=== PATIENT | female | born 1985 | race African-American/Black ===

== ENCOUNTER 2016-07-12 18:47 | Emergency (ER) | payer OTHER | END 2016-07-12 20:50 | disposition home or self-care (01) | LOC: FER 18:47 | DX: S61.512A Laceration without foreign body of left wrist, initial encounter (principal); Z23 Encounter for immunization; W25.XXXA Contact with sharp glass, initial encounter | CPT/HCPCS: 73110; 90471; 90715 ==

== ENCOUNTER 2020-10-08 19:47 | Emergency (ER) | payer OTHER ==
[~2020-10-08 19:47] MED LIST: ASPIRIN EC325 MG PO; CEFTIN250 MG PO; CELEXA20 MG PO; DEXILANT30 MG PO; DIVIGEL1 GM TOP; HCTZ12.5 MG PO; HIPREX1 GM PO; HYDROXYZINE 10M10 MG PO; LOPRESSOR50 MG PO; LOVAZA1 GM PO; MELATONIN5 MG PO; NEURONTIN100 MG PO; PRESERVISION A1 EACH PO; PROMETHEGA12.5 MG/SU PR; RANEXA500 MG PO; SENOKOT8.6 MG PO; SYNTHROID25 MCG PO; SYSTANE ULTRA 010 ML EYEBOTH; VERAPAMIL ER240 MG PO; VITAMIN D350000 UNIT PO; ZESTRIL5 MG PO; ZYRTEC10 M3 PO
[2020-10-08 20:23] LABS: BASOPHIL 0.4 % (0-2); EOSINOPHIL 1.6 % (0-5); HCT 28.2 % (37.0-47.0); HGB 8.1 g/dl (12.5-16.0); LYMPHOCYTE 30.2 % (15-48); MCH 19.7 pg (25.0-31.0); MCHC 28.7 g/dL (32.0-36.0); MCV 68.6 fL (78.0-100.0); MONOCYTE 6.4 % (0-12); MPV 9.6 fL (6.0-9.5); NEUTROPHIL 61.2 % (41-80); NRBC 0; PLT 396 K/uL (150-400); RBC 4.11 M/uL (4.20-5.40); RDW 23.4 % (11.5-14.0); WBC 9.2 K/uL (4.0-10.5)
[2020-10-08 20:39] LABS: ALBUMIN 3.5 g/dL (3.4-5.0); BILIRUBIN - TOTAL 0.2 mg/dL (0.2-1.0); BUN/CREAT RATIO (CALC) 12.6 RATIO; CREATININE 0.87 mg/dL (0.51-0.95); POTASSIUM 3.6 mmol/L (3.5-5.1); TOTAL PROTEIN 7.5 g/dL (6.4-8.2)
[2020-10-08] MEDS ORDERED: KEFLEX250 MG/5 M PO (23:16)
[2020-10-08] MEDS ORDERED: NORCO 5-325 TA1 EACH PO (23:18)
[2020-10-08] MEDS ORDERED: VIBRAMYCIN100 MG PO (23:18)
[2020-10-08] MEDS ORDERED: MEDROL 4MG DOSEP4 MG PO (23:18)
== END 2020-10-08 23:38 | disposition home or self-care (01) ==
LOC: FER 19:47
PROVIDERS: Emergency Medicine
DX: R07.89 Other chest pain (principal); D64.9 Anemia, unspecified; R11.0 Nausea; R10.9 Unspecified abdominal pain; F17.210 Nicotine dependence, cigarettes, uncomplicated
CPT/HCPCS: 36415; 71275; 80053; 83690; 85025; 85379; 93005; J1885; J2405; Q9967

== ENCOUNTER 2020-12-15 14:59 | Emergency (ER) | payer OTHER ==
[~2020-12-15 14:59] MED LIST changes: +KEFLEX250 MG/5 M PO; +MEDROL 4MG DOSEP4 MG PO; +NORCO 5-325 TA1 EACH PO; +VIBRAMYCIN100 MG PO
== END 2020-12-15 18:08 | disposition home or self-care (01) ==
LOC: FER 14:59
DX: K08.89 Other specified disorders of teeth and supporting structures (principal); R42 Dizziness and giddiness; F17.210 Nicotine dependence, cigarettes, uncomplicated
CPT/HCPCS: 93005

== ENCOUNTER 2021-05-19 09:43 | Emergency (ER) | payer OTHER ==
[2021-05-19] MEDS ORDERED: NORCO 5-325 TA1 EACH PO (12:04)
[2021-05-19] MEDS ORDERED: VIBRAMYCIN100 MG PO (12:04)
== END 2021-05-19 12:32 | disposition home or self-care (01) ==
LOC: FER 09:43
DX: N75.1 Abscess of Bartholin's gland (principal); F17.210 Nicotine dependence, cigarettes, uncomplicated
CPT/HCPCS: 96374; 96375; J1170; J2405